=== PATIENT | female | born 1960 | race Caucasian/White ===

== ENCOUNTER 2024-12-17 13:11 | Outpatient (CLI) | payer BC, SELFPAY ==
--- NOTE | ~2024-12-17 | XR_ITS ---
XR lumbar spine 2-3V 12/17/2024 14:04 Indication: Low back pain. Sacroiliitis. Procedure: 3 views lumbar spine Comparison: No prior studies for comparison. Findings: There are surgical changes of fusion at L4-S1. There are prominent ventral osteophytes at L 1-2 and L2-3. No acute fracture or traumatic malalignment. There are laminectomy changes at L4-5. Spi nal stimulator leads partially visualized. No evidence for spondylolisthesis. Sacral foramen are symm etric. There is disc narrowing at all lumbar levels with the exception of L3-4. Impression: 1: Moderate lumbar spondylosis. Reviewed, dictated and finalized at location B. Impression: 1: Moderate lumbar spondylosis.
--- NOTE | ~2024-12-17 | XR_ITS ---
XR sacroiliac joints min 3V 12/17/2024 14:04 Indication: Sacroiliitis Procedure: 3 views of the sacroiliac joints Comparison: No prior studies for comparison. Findings: Sacroiliac joints are symmetric bilaterally without significant degenerative change, ankylo sis, erosion. No fracture or traumatic malalignment. Sacral foramen are symmetric. Impression: 1: No significant abnormality of the sacroiliac joints. Reviewed, dictated and finalized at location B. Impression: 1: No significant abnormality of the sacroiliac joints.
--- NOTE | ~2024-12-17 | XR_ITS ---
XR hip BI wo pelvis 12/17/2024 14:04 Indication: Low back and hip pain Procedure: 2 views each hip Comparison: No prior studies for comparison. Findings: There is mild bilateral symmetric osteoarthritis of the hips. No fracture, subluxation or d islocation. Fusion changes of the lumbosacral junction are present. Impression: 1: Mild bilateral symmetric osteoarthritis of the hips. Reviewed, dictated and finalized at location B. Impression: 1: Mild bilateral symmetric osteoarthritis of the hips.
== END 2024-12-17 13:12 | disposition home or self-care (01) ==
LOC: MICIMG 13:16
PROVIDERS: PCP Internal Medicine; Visit Provider Anesthesiology
DX: M47.816 Spondylosis without myelopathy or radiculopathy, lumbar region (principal); M16.0 Bilateral primary osteoarthritis of hip; M53.88 Other specified dorsopathies, sacral and sacrococcygeal region
CPT/HCPCS: 72100; 72202; 73521